=== PATIENT | female | born 1985 ===

== ENCOUNTER 2017-04-10 11:05 | Emergency (ER) | payer MEDICAID ==
[2017-04-10 11:10] VITALS: BMI 24.7
[2017-04-10 11:13] VITALS: BP 101/69; PULSE 69; RESP 17; TEMP 97.9; O2SAT 97
[2017-04-10] MEDS ORDERED: Naproxen 550 mg Tab PO STA (11:15)
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
--- NOTE | 2017-04-10 13:57 | RAD ---
PROCEDURE: Left Ankle Radiographs. HISTORY: pain COMPARISON: None FINDINGS: BONES: Normal. No fracture. JOINTS: Normal. No osteoarthritis. Ankle mortise maintained. Talar dome intact SOFT TISSUES: Normal. OTHER FINDINGS: None. IMPRESSION: Normal left ankle radiographs.
== END 2017-04-10 12:27 | disposition home or self-care (01) ==
LOC: ED 11:05
DX: S93.402A Sprain of unspecified ligament of left ankle, initial encounter (principal); X58.XXXA Exposure to other specified factors, initial encounter; Y92.59 Other trade areas as the place of occurrence of the external cause; Y99.0 Civilian activity done for income or pay